=== PATIENT | female | born 1990 | race Caucasian/White ===

== ENCOUNTER 2020-07-18 19:55 | Inpatient (IN) | payer MEDICAID ==
[~2020-07-18] VITALS: Ht 167.6 cm; Wt 55.8 kg
[~2020-07-18 19:55] MED LIST: QUET150T2 PO; SERT-158 PO
[2020-07-18] MEDS ORDERED: LORazepam 2 MG TABLET PO PRN (23:15)
[2020-07-18] MEDS ORDERED: ZOLPIDEM TARTRATE 10 MG TABLET PO PRN (23:15)
[2020-07-18] MEDS ORDERED: HALOPERIDOL 5 MG TABLET PO PRN (23:15)
[2020-07-19 02:42] VITALS: BP 129/76
[2020-07-19] MEDS ORDERED: PETROLATUM,WHITE 28 GM JELLY TP PRN (08:15)
[2020-07-19] MEDS ORDERED: ONDANSETRON HCL 4 MG TABLET PO PRN (08:15)
[2020-07-19] MEDS ORDERED: IBUPROFEN 400 MG TABLET PO PRN (08:15)
[2020-07-19] MEDS ORDERED: GuaiFENesin/D-METHORPHAN [SUGAR-FREE] 200-20MG/10 ML SYRUP UDCUP PO PRN (08:15)
[2020-07-19] MEDS ORDERED: ACETAMINOPHEN 325 MG TABLET PO PRN (08:15)
[2020-07-19] MEDS ORDERED: CloNIDine HCL 0.1 MG TABLET PO PRN (08:15)
[2020-07-19] MEDS ORDERED: ALBUTEROL SULFATE HFA 90 MCG/PUFF 8 GM INHALER IH PRN (08:15)
[2020-07-19] MEDS ORDERED: MAG HYDROX/AL HYDROX/SIMETH ES 30 ML SUSPENSION UDCUP PO PRN (08:15)
[2020-07-19] MEDS ORDERED: NICOTINE 14 MG/24 HOUR PATCH TD PRN (08:15)
[2020-07-19] MEDS ORDERED: MAGNESIUM HYDROXIDE SUSPENSION 30 ML UDCUP PO PRN (08:15)
[2020-07-19] MEDS ORDERED: LOPERAMIDE HCL 2 MG CAPSULE PO PRN (08:15)
[2020-07-19] MEDS ORDERED: DOCUSATE SODIUM 100 MG CAPSULE PO PRN (08:15)
[2020-07-19 08:25] VITALS: BP 116/62
[2020-07-19] MEDS: SERTRALINE HCL 100 MG TABLET PO SCH (14:06)
[2020-07-19 16:11] VITALS: BP 126/89
[2020-07-19] MEDS: QUEtiapine FUMARATE 200 MG TABLET PO SCH (20:18)
[2020-07-19] MEDS: ETHYL ALCOHOL 62% ANTISEPTIC NASAL INHALANT 0.6 ML AMPUL NASAL SCH (20:18)
[2020-07-20 06:10] VITALS: BP 124/79
[2020-07-20] MEDS: LEVOFLOXACIN 500 MG TABLET PO SCH (08:24)
[2020-07-20] MEDS: SERTRALINE HCL 100 MG TABLET PO SCH (08:24)
[2020-07-20] MEDS: ETHYL ALCOHOL 62% ANTISEPTIC NASAL INHALANT 0.6 ML AMPUL NASAL SCH ×2 (08:56→21:00)
[2020-07-20 16:14] VITALS: BP 116/78
[2020-07-20] MEDS: QUEtiapine FUMARATE 200 MG TABLET PO SCH (20:35)
[2020-07-21 04:14] VITALS: BP_SYST 18
[2020-07-21 08:21] VITALS: BP 119/76
[2020-07-21] MEDS: LEVOFLOXACIN 500 MG TABLET PO SCH (08:43)
[2020-07-21] MEDS: SERTRALINE HCL 100 MG TABLET PO SCH (08:44)
[2020-07-21] MEDS: ETHYL ALCOHOL 62% ANTISEPTIC NASAL INHALANT 0.6 ML AMPUL NASAL SCH ×3 (09:00→21:00)
[2020-07-21 16:19] VITALS: BP_SYST 114; BP_SYST 136; BP_DIAS 67; BP_DIAS 89
[2020-07-21] MEDS: QUEtiapine FUMARATE 200 MG TABLET PO SCH (20:11)
[2020-07-22 03:07] VITALS: BP 129/82
[2020-07-22 08:08] VITALS: BP 120/71
[2020-07-22] MEDS: LEVOFLOXACIN 500 MG TABLET PO SCH (08:37)
[2020-07-22] MEDS: SERTRALINE HCL 100 MG TABLET PO SCH (08:37)
[2020-07-22] MEDS: ETHYL ALCOHOL 62% ANTISEPTIC NASAL INHALANT 0.6 ML AMPUL NASAL SCH (09:00)
[2020-07-22] MEDS ORDERED: SERT-162 PO (13:23)
[2020-07-22] MEDS ORDERED: LEVO-72 PO (13:23)
[2020-07-22] MEDS ORDERED: QUET200T PO (13:23)
== END 2020-07-22 14:00 | disposition home or self-care (01) | DRG 751 ==
LOC: B3A 23:04
DX: F33.2 Major depressive disorder, recurrent severe without psychotic features (principal); D64.9 Anemia, unspecified; N39.0 Urinary tract infection, site not specified; L03.114 Cellulitis of left upper limb; Z79.899 Other long term (current) drug therapy
CPT/HCPCS: 82550; 87081

== ENCOUNTER 2021-05-22 21:10 | Inpatient (IN) | payer MEDICAID ==
[~2021-05-22] VITALS: Ht 167.6 cm; Wt 59.2 kg
[~2021-05-22 21:10] MED LIST changes: +LEVO-72 PO; -QUET150T2 PO; +QUET200T PO; -SERT-158 PO; +SERT-162 PO
[2021-05-23] MEDS ORDERED: LORazepam 1 MG TABLET PO PRN (02:45)
[2021-05-23] MEDS ORDERED: HALOPERIDOL 5 MG TABLET PO PRN (02:45)
[2021-05-23] MEDS ORDERED: ZOLPIDEM TARTRATE 10 MG TABLET PO PRN (02:45)
[2021-05-23 04:04] VITALS: BP 121/68
[2021-05-23 07:17] LABS: BASOPHILS % (AUTO) 1.9 % (0.0-2.0); EOSINOPHILS % (AUTO) 2.1 % (1.0-6.0); HEMOGLOBIN 12.3 g/dL (12.0-16.0); LYMPHOCYTES # (AUTO) 2.7 K/uL (1.0-4.8); LYMPHOCYTES % (AUTO) 48.3 % (22.0-44.0); MEAN CORPUSCULAR HEMOGLOBIN 30.7 pg (26.0-34.0); MEAN CORPUSCULAR HGB CONC 33.3 G/dL (31.0-37.0); MEAN CORPUSCULAR VOLUME 92 fL (80-100); MONOCYTES # (AUTO) 0.5 K/uL (0.1-1.0); MONOCYTES % (AUTO) 9.7 % (2.0-9.0); NEUTROPHILS # (AUTO) 2.1 K/uL (1.8-7.7); PLATELET COUNT (AUTO) 227 K/uL (150-450); RED BLOOD CELL COUNT(AUTO) 4.01 MIL/uL (4.00-5.20); RED CELL DISTRIBUTION WIDTH 14.7 % (11.5-14.5)
[2021-05-23 07:32] LABS: HEMOGLOBIN A1C 5.5 % (3.8-5.6)
[2021-05-23 08:01] LABS: ALANINE AMINOTRANSFERASE 18 U/L (12-78); ALBUMIN 3.1 g/dL (3.4-5.0); ALKALINE PHOSPHATASE 60 U/L (46-116); ANION GAP 5 mmol/L (8-16); ASPARTATE AMINOTRANSFERASE 15 U/L (15-37); BILIRUBIN,TOTAL 0.7 mg/dL (0.1-1.0); CALCIUM, TOTAL 8.5 mg/dL (8.8-10.5); CARBON DIOXIDE 28 mmol/L (22-29); CHLORIDE 104 mmol/L (98-107); CHOL/HDL RATIO 1.9 (3.9-5.7); CHOLESTEROL 158 mg/dL (131-200); CREATININE 0.58 mg/dL (0.60-1.30); FREE T4 (FREE THYROXINE) 1.04 ng/dL (0.76-1.46); GLOMERULAR FILTR. RATE CALC > 60 mL/min (>60); GLUCOSE,RANDOM 87 mg/dL (70-110); HDL CHOLESTEROL 83 mg/dL (40-60); LDL CHOL (CALC.) 67 mg/dL (0-130); POTASSIUM 4.1 mmol/L (3.5-5.1); SODIUM SERUM 137 mmol/L (136-145); THYROID STIMULATING HORMONE 1.86 uIU/mL (0.36-3.74); TOTAL PROTEIN, SERUM 6.5 g/dL (6.4-8.2); TRIGLYCERIDES 40 mg/dL (15-150); UREA NITROGEN, BLOOD 16 mg/dL (7-18)
[2021-05-23 08:33] VITALS: BP 110/69
[2021-05-23] MEDS: SERTRALINE HCL 100 MG TABLET PO SCH (10:00)
[2021-05-23 16:31] VITALS: BP 111/75
[2021-05-23] MEDS: TraZODone HCL 50 MG TABLET PO SCH (20:21)
[2021-05-23] MEDS: GABAPENTIN 300 MG CAPSULE PO SCH (20:21)
[2021-05-24 06:23] VITALS: BP 106/65
[2021-05-24 08:33] VITALS: BP 118/72
[2021-05-24] MEDS: SERTRALINE HCL 100 MG TABLET PO SCH (08:40)
[2021-05-24 16:19] VITALS: BP 122/80
[2021-05-24] MEDS: TraZODone HCL 50 MG TABLET PO SCH (20:45)
[2021-05-24] MEDS: GABAPENTIN 300 MG CAPSULE PO SCH (20:45)
[2021-05-25 00:37] VITALS: BP 118/73
[2021-05-25 08:16] VITALS: BP 116/82
[2021-05-25] MEDS: SERTRALINE HCL 100 MG TABLET PO SCH (08:32)
[2021-05-25 17:18] VITALS: BP 112/74
[2021-05-25] MEDS: TraZODone HCL 50 MG TABLET PO SCH (20:20)
[2021-05-25] MEDS: GABAPENTIN 300 MG CAPSULE PO SCH (20:20)
[2021-05-26 08:05] VITALS: BP 111/72
[2021-05-26] MEDS: SERTRALINE HCL 100 MG TABLET PO SCH (08:22)
[2021-05-26] MEDS ORDERED: GABA-1181 PO (09:16)
[2021-05-26] MEDS ORDERED: TRAZ-252 PO (09:16)
[2021-05-26] MEDS ORDERED: SERT-440 PO (09:16)
== END 2021-05-26 15:44 | disposition home or self-care (01) | DRG 751 ==
LOC: B3A 05-23 02:38
PROVIDERS: ADMIT Psychiatry & Neurology Psychiatry; ATTEND Psychiatry & Neurology Psychiatry
DX: F33.2 Major depressive disorder, recurrent severe without psychotic features (principal); R45.851 Suicidal ideations; G47.00 Insomnia, unspecified; K59.00 Constipation, unspecified; Z59.00 Homelessness unspecified; Z79.899 Other long term (current) drug therapy; Z91.51 Personal history of suicidal behavior
CPT/HCPCS: 80053; 80061; 83036; 84439; 84443; 85025